=== PATIENT | female | born 1990 | race Caucasian/White ===

== ENCOUNTER 2016-10-18 10:54 | Outpatient (CLI) | payer OTHER ==
--- NOTE | 2016-10-18 11:39 | DIAGNOSTIC IMAGING REPORT ---
PROCEDURE: US OB 1ST TRIMESTER W/TRANSVAG INDICATION: DATES TECHNIQUE: Parker scale, color, and spectral Doppler transabdominal sonographic images of the first trimester gravid uterus were obtained. COMPARISON: None. FINDINGS: TRANSABDOMINAL SCANS: The gravid uterus is anteverted in position and contains a fundal gestational sac with a moderate residual response. No perigestational hemorrhage. The cervix is closed. There is a single gestational sac that measures 13.6 mm which corresponds to 6 weeks and 3 days. CHESTER 06/10/2017. No pole is visible. A yolk sac was visible. Maternal ovaries appear normal with a corpus luteum cyst visualized right ovary. No free pelvic fluid. IMPRESSION: 1. Single gestational sac with gestational age of 6 weeks and 3 days and estimated due date of 06/10/2017 2. Closed cervix and no perigestational hemorrhage.
== END 2016-10-18 23:00 ==
LOC: US SRH 10:54
DX: Z34.91 Encounter for supervision of normal pregnancy, unspecified, first trimester (principal); Z3A.01 Less than 8 weeks gestation of pregnancy